=== PATIENT | male | born 1990 | race Two or more races ===

== ENCOUNTER 2020-01-07 09:16 | Emergency (ER) | payer OTHER ==
[2020-01-07] MEDS ORDERED: LORazepam 1 MG Tab PO ONE (09:52)
--- NOTE | 2020-01-07 11:49 | EDM.PDOC ---
ED HPI GENERAL MEDICAL PROBLEM - General Chief Complaint: Chest Pain Stated Complaint: CHEST PAIN AND ARM PAIN SENT BY CLINIC Time Seen by Provider: 01/07/20 09:32 Source of Information: Reports: Patient History Limitations: Reports: No Limitations - History of Present Illness INITIAL COMMENTS - FREE TEXT/NARRATIVE: The patient presents for palpitations. This has been going on for about 3 days. He also has some chest discomfort. He has no fever, chills, cough, congestion, runny nose, abdominal pain, nausea or vomiting. His heart rate was about 110 to 120. He has no shortness of breath. He has no history of heart problems. He has not been drinking any caffeine such as coffee, soda or energy drinks. He has no swelling or pain in his legs. Onset: Gradual Duration: Day(s): Location: Reports: Chest Quality: Reports: Other (discomfort) Severity: Mild Improves with: Reports: None Worsens with: Reports: None Associated Symptoms: Reports: Chest Pain (discomfort). Denies: Cough, Fever/Chills, Headaches, Nausea/Vomiting, Shortness of Breath - Related Data Allergies Allergy/AdvReac Type Severity Reaction Status Date / Time No Known Allergies Allergy Verified 01/07/20 09:33 Home Meds: Home Meds . [No Known Home Meds] 01/07/20 [History] Past Medical History - Past Health History Medical/Surgical History: Denies Medical/Surgical History HEENT History: Reports: Impaired Vision Psychiatric History: Reports: Anxiety - Infectious Disease History Infectious Disease History: Reports: Chicken Pox Other Infectious Disease History: chicken pox as a child Social & Family History - Tobacco Use Smoking Status *Q: Never Smoker - Caffeine Use Caffeine Use: Reports: Coffee, Energy Drinks, Soda, Tea - Recreational Drug Use Recreational Drug Use: Yes Recreational Drug Type: Reports: Marijuana/Hashish ED ROS GENERAL - Review of Systems Review Of Systems: See Below Constitutional: Reports: No Symptoms HEENT: Reports: No Symptoms Respiratory: Reports: No Symptoms Cardiovascular: Reports: Chest Pain (discomfort) Endocrine: Reports: No Symptoms GI/Abdominal: Reports: No Symptoms : Reports: No Symptoms Musculoskeletal: Reports: No Symptoms ED EXAM, GENERAL - Physical Exam Exam: See Below Exam Limited By: No Limitations General Appearance: Alert, No Apparent Distress Ears: Normal External Exam Nose: Normal Inspection Head: Atraumatic, Normocephalic Neck: Normal Inspection Respiratory/Chest: No Respiratory Distress, Lungs Clear, Normal Breath Sounds Cardiovascular: No Edema, No Murmur, Tachycardia GI/Abdominal: Soft, Non-Tender, No Organomegaly, No Mass Back Exam: Normal Inspection Extremities: Normal Inspection EKG INTERPRETATION EKG Date: 01/07/20 Time: 10:01 Rhythm: Other (sinus tachycardia) Rate (Beats/Min): 111 [place]: Normal P-Wave: Present QRS: Normal ST-T: Other (normal early repol) QT: Normal Course - Vital Signs Last Recorded V/S: Last Vital Signs Temp 97.5 F 01/07/20 09:30 Pulse 103 H 01/07/20 10:45 Resp 16 01/07/20 09:30 BP 131/85 01/07/20 10:45 Pulse Ox 98 01/07/20 10:45 - Orders/Labs/Meds Orders: Active Orders 24 hr Category Date Time Status Cardiac Monitoring [RC] . DIRECTED Care 01/07/20 09:52 Active EKG Documentation Completion [RC] STAT Care 01/07/20 09:52 Active Holter Monitor 48 Hours [RC] .PRN Care 01/07/20 11:38 Active Chest 1V Frontal [CR] Stat Exams 01/07/20 09:52 Taken CORONAVIRUS COVID-19 PCR PHL Stat Lab 01/07/20 11:03 Ordered Labs: Laboratory Tests 01/07/20 01/07/20 01/07/20 Range/Units 10:50 10:50 10:50 WBC 6.19 (4.23-9.07) K/mm3 RBC 5.20 (4.63-6.08) M/mm3 Hgb 15.6 (13.7-17.5) gm/dl Hct 43.5 (40.1-51.0) % MCV 83.7 (79.0-92.2) fl MCH 30.0 (25.7-32.2) pg MCHC 35.9 H (32.2-35.5) g/dl RDW Std Deviation 38.7 (35.1-43.9) fL Plt Count 197 (163-337) K/mm3 MPV 11.7 (9.4-12.3) fl Neut % (Auto) 81.2 H (34.0-67.9) % Lymph % (Auto) 13.9 L (21.8-53.1) % Hughes % (Auto) 4.5 L (5.3-12.2) % Eos % (Auto) 0 L (0.8-7.0) Baso % (Auto) 0.2 (0.1-1.2) % Neut # (Auto) 5.03 (1.78-5.38) K/mm3 Lymph # (Auto) 0.86 L (1.32-3.57) K/mm3 Hughes # (Auto) 0.28 L (0.30-0.82) K/mm3 Eos # (Auto) 0.00 L (0.04-0.54) K/mm3 Baso # (Auto) 0.01 (0.01-0.08) K/mm3 D-Dimer, Quantitative 0.30 (0.19-0.50) mg/L Sodium 137 (136-145) mEq/L Potassium 3.7 (3.5-5.1) mEq/L Chloride 102 (98-107) mEq/L Carbon Dioxide 24 (21-32) mEq/L Anion Gap 14.7 (5-15) BUN 11 (7-18) mg/dL Creatinine 0.8 (0.7-1.3) mg/dL Est Cr Clr Drug Dosing 129.44 mL/min Estimated GFR (MDRD) > 60 (>60) mL/min BUN/Creatinine Ratio 13.8 L (14-18) Glucose 109 H (74-106) mg/dL Calcium 8.4 L (8.5-10.1) mg/dL Magnesium 2.0 (1.8-2.4) mg/dl Total Bilirubin 0.7 (0.2-1.0) mg/dL AST 19 (15-37) U/L ALT 25 (16-63) U/L Alkaline Phosphatase 90 (46-116) U/L Troponin I < 0.017 (0.00-0.056) ng/mL C-Reactive Protein 0.2 (<1.0) mg/dL Total Protein 8.0 (6.4-8.2) g/dl Albumin 4.4 (3.4-5.0) g/dl Globulin 3.6 gm/dL Albumin/Globulin Ratio 1.2 (1-2) TSH 3rd Generation 0.885 (0.358-3.74) uIU/mL Meds: Medications Discontinued Medications Generic Name Dose Route Start Last Admin Trade Name Najma PRN Reason Stop Dose Admin Lorazepam 1 mg 01/07/20 09:52 01/07/20 10:20 Ativan PO 01/07/20 09:53 1 mg ONETIME ONE Administration - Re-Assessments/Exams Free Text/Narrative Re-Assessment/Exam: 01/07/20 11:48 I ordered an EKG, CXR, labs and ativan 1mg PO. He said he was anxious when he came back and was breathing fast and his hands were cramping. 01/07/20 11:50 I have ordered a COVID 19 test. I will also get him on a hear monitor. I will give him a couple ativan to help with any anxiety. Departure - Departure Time of Disposition: 11:55 Disposition: Home, Self-Care 01 Condition: Good Clinical Impression: Palpitations Referrals: PCP,None [Primary Care Provider] - Sunitha Rangel, INTERPRETER AND TRANSLATOR [Nurse Practitioner] - 1 Week Additional Instructions: Drink plenty of fluids. Avoid all stimulants such as caffeine and nicotine. Wear the holter monitor for 2 days. Follow up with Sunitha Rangel in our clinic for holter monitor results. Take the ativan as needed for any anxiety. Please return if you are worse. Quarantine yourself until we call you with the COVID 19 results. Sepsis Event Note (ED) - Evaluation Sepsis Screening Result: No Definite Risk - Focused Exam Vital Signs: Vital Signs Temp Pulse Resp BP Pulse Ox 01/07/20 10:45 103 H 131/85 98 01/07/20 09:30 97.5 F 113 H 16 170/92 H 99 - My Orders Last 24 Hours: My Active Orders 01/07/20 09:52 Cardiac Monitoring [RC] . DIRECTED EKG Documentation Completion [RC] STAT Chest 1V Frontal [CR] Stat 01/07/20 11:03 CORONAVIRUS COVID-19 PCR PHL Stat 01/07/20 11:38 Holter Monitor 48 Hours [RC] .PRN - Assessment/Plan Last 24 Hours: My Active Orders 01/07/20 09:52 Cardiac Monitoring [RC] . DIRECTED EKG Documentation Completion [RC] STAT Chest 1V Frontal [CR] Stat 01/07/20 11:03 CORONAVIRUS COVID-19 PCR PHL Stat 01/07/20 11:38 Holter Monitor 48 Hours [RC] .PRN
--- NOTE | 2020-02-08 12:41 | CR ---
PROCEDURE INFORMATION: Exam: XR Chest, 1 View Exam date and time: 01/07/2020 9:40 AM Age: 29 years old Clinical indication: Chest pain TECHNIQUE: Imaging protocol: XR of the chest Views: 1 view. COMPARISON: No relevant prior studies available. FINDINGS: Lungs: Unremarkable. No consolidation. Pleural space: Unremarkable. No pleural effusion. No pneumothorax. Heart/Mediastinum: Unremarkable. No cardiomegaly. Bones/joints: Unremarkable. IMPRESSION: No acute findings. Thank you for allowing us to participate in the care of your patient. Dictated and Authenticated by: Miguel Warren MD 02/08/2020 12:39 PM Central Time ([place] & [place]) OZZY
== END 2020-01-07 12:10 | disposition home or self-care (01) ==
LOC: JD.ED 09:16
DX: R00.2 Palpitations (principal); Z20.828 Contact with and (suspected) exposure to other viral communicable diseases
CPT/HCPCS: 36415; 71045; 80053; 83735; 84443; 84484; 85025; 85379; 86140; 87635; 93005; 93225; 93226; 99285; A9270; 93010; 99283; U0002

== ENCOUNTER 2021-06-23 21:14 | Emergency (ER) | payer SELFPAY ==
[2021-06-23] MEDS ORDERED: FLU Vacc QS2021-22 36MOS UP/PF 60 MCG/0.5 ML Syringe IM ONE (21:45)
[2021-06-23] MEDS ORDERED: Sodium Chloride 0.9% 10 ML SDV FLUSH ONE (21:46)
[2021-06-23] MEDS ORDERED: Iopamidol 612 MG/ML 100 ML Bottle IVPUSH ONE (21:46)
== END 2021-06-23 22:40 | disposition home or self-care (01) ==
LOC: JD.ED 21:14
DX: R10.31 Right lower quadrant pain (principal); Z23 Encounter for immunization
CPT/HCPCS: 36415; 74177; 80053; 85025; 86140; 90471; 90686; 99284; Q9967

== ENCOUNTER 2023-12-28 10:12 | Emergency (ER) | payer OTHER | END 2023-12-28 11:33 | disposition home or self-care (01) | LOC: JD.ED 10:12 | DX: S46.211A Strain of muscle, fascia and tendon of other parts of biceps, right arm, initial encounter (principal); W23.0XXA Caught, crushed, jammed, or pinched between moving objects, initial encounter | CPT/HCPCS: 99283 ==